=== PATIENT | male | born 1955 | race Caucasian/White ===

== ENCOUNTER 2016-06-27 12:12 | Emergency (ER) | payer OTHER, MEDICARE ==
[~2016-06-27] VITALS: Ht 190.5 cm; Wt 104.3 kg
[~2016-06-27 12:12] MED LIST: BENADRYL ALLERG25 MG PO; CLONAZEPAM1 MG PO; IBUPROFEN800 M1 PO; KEFLEX500 M1 PO; LISINOPRIL10 MG PO; OXYCODONE HCL30 MG PO; PERCOCET 325 MG1 TA2 PO; PERCOCET 5-3251 EACH PO; SIMVASTATIN20 MG PO
[2016-06-27 12:18] VITALS: BP 184/99
--- NOTE | 2016-06-27 12:24 | ED HAND/WRIST INJURY COMPLAINT ---
History of Present Illness General Chief Complaint: Laceration Procedure Stated Complaint: LAC TO L HAND Source: patient Exam Limitations: no limitations Vital Signs & Intake/Output Vital Signs & Intake/Output Vital Signs Date Time Temp Pulse Resp B/P B/P Pulse O2 O2 Flow FiO2 Mean Ox Delivery Rate 06/27 1218 98.9 114 15 184/99 100 Room Air Allergies Coded Allergies: NO KNOWN ALLERGIES (10/07/13) Reconcile Medications Oxycodone HCl/Acetaminophen (Percocet 5-325 MG Tablet) 5 MG-325 MG TABLET 1 TAB PO Q6HR PRN PAIN Triage Note: PT TO ED FOR AVULSION TO L MIDDLE FINGER. BLEEDING CONTROLLED ON ARRIVAL, COMPRESSION DRESSING APPLIED IN TRIAGE. PT UTD ON TETANUS. Triage Nurses Notes Reviewed? yes Occurred: just prior to arrival Duration: hour(s): (1) Timing: no prior history Injury Environment: home Severity: severe Severity Numbers: 10 Pain/Injury Location: Left: 3rd finger. Context: laceration Method of Injury: laceration No Modifying Factors: none HPI: Patient is a 60-year-old male presenting to the emergency department with chief complaint of laceration to left middle finger that happened just prior to arrival. He reports that he was switching a blade on his [place] and accidentally cut the distal tip of the finger. Pain is severe, 10 out of 10 throbbing in nature. Nothing seems to make the pain better or worse. Fairly up -to-date with tetanus immunization, have sutures a few months ago and was given Ativan. Denies taking anything for pain prior to arrival. Denies any nausea or vomiting. No numbness or tingling. Denies any other injuries. (AMY LONDON) Past History Travel History Traveled to [place] past 21 day No Medical History Any Pertinent Medical History? 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 No (JULES MARINELLIAMY) Review of Systems Review of Systems Constitutional: Reports: no symptoms. Comments Review of systems: See HPI, All other systems negative. Constitutional, no chills fever or weight loss HEENT: No visual changes no sore throat no congestion Cardiovascular: No chest pain ,palpitation Skin, no jaundice no rashes Respiratory: No dyspnea cough sputum or hemoptysis GI: No nausea no vomiting Muscle skeletal: no back pain, no neck pain, Neurologic: No numbness no confusion, no headaches Psych: No stress anxiety or depression,. Heme/endocrine: No bruising no bleeding no polyuria or polydipsia Immunology: Up-to-date with immunizations (AMY LONDON) Physical Exam Physical Exam General Appearance: alert, awake, mild distress Hand Left: lacerations, 3rd finger Hand Right: normal inspection, normal range of motion Comments: Well-developed well-nourished person in no acute distress HEENT: Pupils equally round and reactive to light and accommodation. Nose is atraumatic. Neck: Normal inspection Back: Nontender Cardiovascular: Regular rate and rhythms no murmurs rubs or gallops, normal JVP Respiratory: No respiratory distress.breath sounds clear to auscultation bilaterally Extremity: No edema, full range of motion of fingers on both hands without difficulty. Radial pulses are 2+ bilaterally. Capillary refill is intact in upper extremities. Neuro: Alert oriented x3, motor sensory normaL Skin: Skin avulsion at the distal tip of the left middle finger, approximately 5 mm in depth, removing the whole finger pad of the left middle finger. Psych: Mood and affect is normal, memory and judgment is normal. (AMY LONDON) Progress Differential Diagnosis: OPEN FRACTURE, SKIN AVULSION, CONTUSION, LACERATION Plan of Care: Current Medications Sig/Mauricio Start time Last Medication Dose Stop Time Status Admin Oxycodone/ 1 TAB ONCE ONE 06/27 1330 UNVr Acetaminophen 06/27 1331 (Percocet) Diagnostic Imaging: Viewed by Me: Radiology Read. Discussed w/RAD: Radiology Read. Radiology Impression: PATIENT: OZZY THOMPSON PRESENT AGE: 60 PATIENT ACCOUNT NO: [id number] : 54 LOCATION: [facility] ORDERING PHYSICIAN: AMY MARINELLI SERVICE DATE: 06/27/16-1230 EXAM TYPE: RAD - XRY-FINGERS, LEFT EXAMINATION: XR FINGER, LEFT CLINICAL INFORMATION: Skin avulsion. COMPARISON: 01/02/2016 TECHNIQUE: Single view left hand, 2 views of the left what appears to be third finger. FINDINGS: Bone mineral density is maintained without evidence of fracture or dislocation. No focal osseous lesions are seen. Joint space is maintained without productive or erosive changes. Small amount of air in the soft tissues is suspected volarly along the proximal to midshaft of the left third proximal phalanx best seen on the oblique view. No radiopaque foreign bodies are identified. IMPRESSION: No fracture or dislocation is seen. Comments: On arrival patient was given IM Dilaudid for pain. Patient will call if x-ray to rule out any bony involvement. Wound was cleaned extensively with saline, 1000 mL, irrigated with Betadine, sterile dressing placed. No fracture identified on x-ray. Patient will follow up with hand specialist. He was educated on returning 2 days for wound check. Given 1 dose of Percocet prior to discharge. (AMY LONDON) Departure Departure Time of Disposition: 1315 Disposition: HOME OR SELF CARE Condition: Stable Clinical Impression Primary Impression: Skin avulsion Referrals: MYLENE BLANCO,IMANI MEHTA MD,ELSY Sims (PCP/Family) Additional Instructions: Return in 2 days for wound check. Follow-up with a hand specialist next week. Take Percocet as prescribed for pain. Return for worsening symptoms or concerns. Departure Forms: Customer Survey General Discharge Information Prescriptions: Current Visit Scripts Oxycodone HCl/Acetaminophen (Percocet 5-325 MG Tablet) 1 TAB PO Q6HR PRN PAIN #10 TAB (AMY LONDON) PA/CONE SEWER Co-Sign Statement Statement: ED Attending supervision documentation- [] I saw and evaluated the patient. I have also reviewed all the pertinent lab results and diagnostic results. I agree with the findings and the plan of care as documented in the PA's/CONE SEWER's documentation. [X] I have reviewed the ED Record and agree with the PA's/CONE SEWER's documentation. [] Additions or exceptions (if any) to the PAs/CONE SEWER's note and plan are summarized below: [] (CONCEPCION ROGEL DO) Procedures Additional Procedures Additional Procedures: WOUND CARE Progress: Wound was cleaned, prepped with Betadine and saline. Irrigated extensively. This was done after digital block, 1% lidocaine injected at the base of the left middle finger, 4 mL of lidocaine. Sterile dressing including Xeroform was applied with bacitracin. (JULES MARINELLI,AMY)
[2016-06-27] MEDS ORDERED: PERCOCET 5-3251 EACH PO (12:55)
--- NOTE | 2016-06-27 13:10 | RADIOLOGY REPORT ---
EXAMINATION: XR FINGER, LEFT CLINICAL INFORMATION: Skin avulsion. COMPARISON: 01/02/2016 TECHNIQUE: Single view left hand, 2 views of the left what appears to be third finger. FINDINGS: Bone mineral density is maintained without evidence of fracture or dislocation. No focal osseous lesions are seen. Joint space is maintained without productive or erosive changes. Small amount of air in the soft tissues is suspected volarly along the proximal to midshaft of the left third proximal phalanx best seen on the oblique view. No radiopaque foreign bodies are identified. IMPRESSION: No fracture or dislocation is seen.
== END 2016-06-27 13:32 ==
LOC: ERH 12:12
DX: S61.203A Unspecified open wound of left middle finger without damage to nail, initial encounter (principal); W45.8XXA Other foreign body or object entering through skin, initial encounter; Y93.89 Activity, other specified; Y92.009 Unspecified place in unspecified non-institutional (private) residence as the place of occurrence of the external cause
CPT/HCPCS: 73140-LT; 96372

== ENCOUNTER 2016-08-09 09:12 | Emergency (ER) | payer OTHER, MEDICARE ==
[~2016-08-09] VITALS: Ht 185.4 cm; Wt 102.1 kg
--- NOTE | 2016-08-09 10:05 | RADIOLOGY REPORT ---
EXAMINATION: XR ANKLE, LEFT CLINICAL INFORMATION: Left ankle injury 2 days ago COMPARISON: 09/22/2011 TECHNIQUE: AP, lateral, and mortise views of the left ankle. FINDINGS: There is circumferential soft tissue swelling. Small ankle joint effusion. Linear ossification adjacent to the distal aspect of the medial malleolus is unchanged from previous, likely associated with prior trauma. Similarly, there is spurring at the anterior tibiotalar joint with corticated ossification. The ankle mortise remains congruent. IMPRESSION: Soft tissue swelling with ankle joint effusion. No evidence of acute fracture. Multiple chronic changes are similar to previous.
--- NOTE | 2016-08-09 10:07 | ED ANKLE/FOOT INJURY COMPLAINT ---
History of Present Illness General Chief Complaint: Foot or Ankle Injury Stated Complaint: TRIPPED LFT ANKLE PAIN Source: patient, family Exam Limitations: no limitations Vital Signs & Intake/Output Vital Signs & Intake/Output Vital Signs Date Time Temp Pulse Resp B/P B/P Pulse O2 O2 Flow FiO2 Mean Ox Delivery Rate 08/09 1055 99 Room Air 08/09 1055 98.3 89 15 124/74 100 Room Air 08/09 0944 97.8 96 16 140/88 96 Room Air Allergies Coded Allergies: NO KNOWN ALLERGIES (10/07/13) Reconcile Medications Clonazepam (Klonopin) 2 MG TABLET 1 TAB PO TIDPRN PRN ANXIETY (Reported) Ibuprofen 600 MG TABLET 1 TAB PO TID pain with food Oxycodone HCl/Acetaminophen (Percocet 5-325 MG Tablet) 5 MG-325 MG TABLET 1 TAB PO TID pain Triage Note: PT STATE STHAT 2 DAYS AGO HE WAS WORKING IN [place] WHEN HE TRIPPED ON ROCK TWISTING HIS L ANKLE AND FALLING TO GROUND, WOKE YESTERDAY AM WITH INCREASED SWELLING PAIN 10/10. REFUSES MEDS AT TRIAGE STATES THAT HE WOULD LIKE TO BE SEEN TO BE MEDICATED WITH SOMETHING STRONGER FOR THE PAIN Triage Nurses Notes Reviewed? yes Occurred: yesterday Duration: day(s): (2), constant, continues in ED, getting worse Timing: single episode today Severity: moderate, severe Severity Numbers: 9 Pain/Injury Location: Left: Ankle. Method of Injury: fall No Modifying Factors: none Associated Symptoms: swelling, pain HPI: 61-year-old male past medical history of hypertension and anxiety since complaining of pain in his left ankle after a fall yesterday. Patient reports she was out doing yard work and was walking backwards when he tripped over a stone causing his left ankle to roll and him to fall. He denies any head injury or loss of consciousness. He reports initially pain was mild he was an bleeding immediately after the fall. Patient reports he woke up the next day noticed pain was increasing and the vicinity of swelling in the left ankle as well. Patient reports pain on the lateral and posterior aspect of the ankle that is worse with any type of movement or weightbearing. Patient rates the pain as 9 at 10 that does not radiate. He denies any other additional injuries. He is not taking any medications for pain. No pain in his foot, knee, no numbness, tingling, fever. (MEI RICO PA-C) Past History Travel History Traveled to [place] past 21 day No Medical History Any Pertinent Medical History? 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 No (MEI RICO PA-C) Review of Systems Review of Systems Constitutional: Reports: no symptoms. EENTM: Reports: no symptoms. Respiratory: Reports: no symptoms. Cardiovascular: Reports: no symptoms. GI: Reports: no symptoms. Genitourinary: Reports: no symptoms. Musculoskeletal: Reports: see HPI, joint pain, joint swelling. Skin: Reports: no symptoms. Neurological/Psychological: Reports: no symptoms. Hematologic/Endocrine: Reports: no symptoms. Immunologic/Allergic: Reports: no symptoms. All Other Systems: Reviewed and Negative (MEI RICO PA-C) Physical Exam Physical Exam General Appearance: well developed/nourished, no apparent distress, alert, awake , mild distress Head: atraumatic, normal appearance Eyes: Bilateral: normal appearance, PERRL, EOMI. Ears, Nose, Throat: normal pharynx, normal ENT inspection, hearing grossly normal Neck: normal inspection, supple, full range of motion Cardiovascular/Respiratory: normal breath sounds, normal peripheral pulses, regular rate/rhythm, no respiratory distress Back: normal inspection, normal range of motion Leg/Knee/Thigh Left: normal range of motion, normal inspection Ankle Left: evidence of injury, mass, pain, soft tissue tenderness, swelling, tenderness, limited range of motion Ankle Right: normal inspection, normal range of motion Foot Left: tenderness, limited range of motion, pain, soft tissue tenderness, swelling Foot Right: normal inspection, normal range of motion Reflexes: 2+: knee (R), knee (L). Neuro/Vascular: normal motor function, normal sensation Tendon: normal tendon function Psychiatric: awake, alert, oriented x 3 Skin: intact, normal color, warm/dry Comments: There is soft tissue swelling and pain with palpation of the lateral aspect of the left ankle medial lateral malleolus. No bruising or gross deformity. Pain with palpation in the area of the Achilles tendon. Decreased range of motion of the left ankle and foot due to pain. Negative Doshi test. (MEI RICO PA-C) Progress Differential Diagnosis: DVT, cellulitis, gout, fracture, dislocation, sprain, contusion, Achilles tendon rupture, avulsion fracture Plan of Care: Orders Procedure Date/time Status Durable Medical Equipment 08/09 1042 Active Ankle x-ray was negative for fracture. Based on exam there is a concern for possible Achilles tendon injury. Patient will be placed in a posterior splint at 30 plantarflexion. Follow-up with an orthopedic doctor this week. Patient will be given ibuprofen and Percocet as needed for pain. Rest ice elevation compression. Discussed results with patient and he is agreeable to plan. Patient will return to emergency department with any concerns. (MEI RICO PA-C) Departure Departure Disposition: HOME OR SELF CARE Condition: Stable Clinical Impression Primary Impression: Left ankle pain Qualifiers: Chronicity: acute Qualified Code: M25.572 - Pain in left ankle and joints of left foot Referrals: ILIA SANTOS,JUAN MEHTA MD,ELSY Sims (PCP/Family) Additional Instructions: rest, apply ice do not bear any weight on the affected side and wear splint at all times. Use crutches when walking. Use ibuprofen and Percocet as needed for pain. They can follow up with orthopedic doctor this week. Do not remove splint until seen by orthopedics. Return to emergency department with any concerns. Departure Forms: Customer Survey General Discharge Information Prescriptions: Current Visit Scripts Ibuprofen 1 TAB PO TID #30 TAB with food Oxycodone HCl/Acetaminophen (Percocet 5-325 MG Tablet) 1 TAB PO TID #10 TAB (MEI RICO PA-C) PA/DRY KILN FEEDER Co-Sign Statement Statement: ED Attending supervision documentation- [] I saw and evaluated the patient. I have also reviewed all the pertinent lab results and diagnostic results. I agree with the findings and the plan of care as documented in the PA's/DRY KILN FEEDER's documentation. [x] I have reviewed the ED Record and agree with the PA's/DRY KILN FEEDER's documentation. [] Additions or exceptions (if any) to the PAs/DRY KILN FEEDER's note and plan are summarized below: [] (JUAN F SIMS,CONCEPCION Etienne) Procedures Splinting Location: left foot/ankle Manual Alignment Performed: No Hand-Made Type: orthoglass Splint: left posterior splint at 30 degrees plantarflexion Splint Applied By: splint applied by me Pre-Proc Neuro Vasc Exam: normal Post-Proc Neuro Vasc Exam: normal Progress: Consent obtained. Posterior splint at 30 plantarflexion applied. he tolerated well. (JACKY BAEZA,MEI)
[2016-08-09] MEDS ORDERED: KLONOPIN2 M1 PO (10:25)
[2016-08-09] MEDS ORDERED: PERCOCET 5-3251 EACH PO (10:40)
[2016-08-09] MEDS ORDERED: IBUPROFEN600 M1 PO (10:40)
[2016-08-09 10:55] VITALS: BP 124/74
== END 2016-08-09 11:31 ==
LOC: ERH 09:12
DX: M25.572 Pain in left ankle and joints of left foot (principal)
CPT/HCPCS: 73610-LT